=== PATIENT | female | born 1945 | race Caucasian/White ===

== ENCOUNTER 2017-09-08 14:21 | Inpatient (IN) ==
--- NOTE | 2017-09-08 15:08 | Emergency Department Note ---
Disposition Clinical Impression: Bimalleolar fracture Qualifiers: Encounter type: initial encounter Fracture type: closed Laterality: left Qualified Code(s): S82.842A - Displaced bimalleolar fracture of left lower leg, initial encounter for closed fracture Disposition: Admitted As Inpatient Condition: Good Time of Disposition: 18:13 Lower Extremity Injury HPI - General Chief Complaint: ED Extremity Injury, Lower Stated Complaint: Left ankle injury Time Seen by Provider: 09/08/17 14:29 Source: patient Limitations: no limitations Nursing Notes Reviewed: Yes Vital Signs Reviewed: Yes - History of Present Illness HPI Narrative: Alert and oriented 72-year-old female presents for evaluation of a fall injury just prior to arrival. The patient states that she was walking on steps of her basement, when she stepped at the last step, her ankle twisted and she fell. She complains of pain at the area of the lateral and medial malleolus of the left ankle. She denies any other injury or complaints at this time. She denies any numbness or tingling distal to the area of injury. She does state " I heard a snap". She denies hitting her head, she denies any back pain or neck pain. She denies any abdominal pain, or shortness of breath. 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 of Injury: fall Context: fall Place: home Pain Severity: severe Pain Scale: 8 Improves with: immobilization Worsens with: movement, palpation Associated symptoms: Reports: unable to bear weight, snap/pop sensation - Related Data Home Medications Medication Instructions Recorded Confirmed Apixaban [Eliquis] 5 mg PO BID 09/08/17 09/08/17 Atorvastatin Calcium [Lipitor] 80 mg PO HS 09/08/17 09/08/17 Celecoxib [Celebrex] 200 mg PO DAILY 09/08/17 09/08/17 Cetirizine HCl [Zyrtec] 10 mg PO DAILY 09/08/17 09/08/17 Flecainide Acetate [Flecainide 50 mg PO Q12H 09/08/17 09/08/17 Acetate] Levothyroxine [Synthroid] 75 mcg PO 0630 09/08/17 09/08/17 Metoprolol Succinate 100 mg PO DAILY 09/08/17 09/08/17 Multivitamin [One Daily Essential] 1 each PO DAILY 09/08/17 09/08/17 Tizanidine HCl [Tizanidine HCl] 4 mg PO Q8H PRN 09/08/17 09/08/17 Allergies Allergy/AdvReac Type Severity Reaction Status Date / Time acetaminophen Allergy Itching Verified 09/08/17 15:01 [From Darvocet-N] propoxyphene Allergy Itching Verified 09/08/17 15:01 [From Darvocet-N] codeine AdvReac Vomiting Verified 09/08/17 15:01 All systems ED: reviewed and negative except as stated. Constitutional: Denies: fever, chills, weakness, weight change Eyes: Denies: eye pain, eye discharge, vision change ENT ED: Denies: ear pain, throat pain, dental pain, hearing loss, epistaxis, congestion, dysphagia Cardiovascular: Denies: chest pain, palpitations, dyspnea on exertion, edema, syncope Respiratory: Denies: cough, dyspnea, wheezes, hemoptysis, stridor Gastrointestinal: Denies: abdominal pain, nausea, vomiting, diarrhea, constipation, hematemesis, melena, hematochezia Genitourinary: Denies: dysuria, frequency, hematuria, discharge Musculoskeletal: Reports: as per HPI, arthralgia (Left ankle injury). Denies: back pain, neck pain, myalgia Integumentary: Denies: rash, abrasion, lesions Neurological: Denies: headache, weakness, numbness, paresthesias, confusion, abnormal gait, vertigo Psychiatric: Denies: anxiety, depression, suicidal thoughts, homicidal thoughts , auditory hallucinations, visual hallucinations Endocrine: Denies: fatigue Hematological/Lymphatic: Denies: easy bleeding, easy bruising Allergic/Immunologic: Denies: facial swelling, urticaria Past Medical History - Past Medical History Attestation: Yes The following information was validated with the patient. Source: patient, nursing notes reviewed Medical history: Reports: atrial fibrillation, myocardial infarction, TIA Psychiatric history: Reports: no psych history - Social History Smoking Status: Never smoker Smokeless Tobacco Status: No Alcohol use: Reports: none Drug use: Reports: none Physical Exam - General Limitations: no limitations General appearance: alert, in no apparent distress - Head Head exam: atraumatic, normocephalic, normal inspection - Eye Eye exam: Present: normal appearance, PERRL, EOMI. Absent: nystagmus - ENT ENT exam: mucous membranes moist - Neck Neck exam: Present: normal inspection, full ROM, trachea midline - Chest Chest inspection: Present: normal inspection, symmetric chest wall rise - Expanded Lower Extremity Exam Upper leg exam: Present: normal inspection, full ROM. Absent: tenderness Knee exam: Present: normal inspection, full ROM. Absent: tenderness Lower leg exam: Present: normal inspection, full ROM. Absent: tenderness Ankle exam: Present: tenderness (Tenderness with palpation over the area of the lateral and medial malleolus, left ankle), swelling (Moderate edema noted, area of the lateral and medial malleolus). Absent: full ROM (Range of motion severely limited by pain, left ankle), ecchymosis, deformity, tenderness over talofibular lig Foot/toe exam: Present: normal inspection, full ROM. Absent: calcaneal tenderness, tenderness at base of 5th metatarsal Neurovascular/Tendon exam: Present: normal capillary refill. Absent: pulse deficit, tendon deficit, extremity cold to touch Gait: unable to bear weight - Neurological Exam Neurological exam: Present: alert, oriented X3 - Psychiatric Psychiatric exam: Present: normal affect, normal mood - Skin Skin exam: Present: warm, dry, intact, normal color Course Course Narrative: 1520: I spoke with Dr. mock, orthopedist international trade teacher. Dr. mock states that if the patient is able to ambulate with the use of crutches, that she may be splinted and discharged home with orthopedic follow-up. We will splint the patient and attempt an ambulation trial with the use of crutches. 1636: The patient is unable to ambulate safely with the use of crutches. I discussed this with Dr. mock. He requests the patient be admitted to the hospitalist service and podiatry be consult. He states that he could potentially perform surgical intervention after 48 hours, due to her Eliquis. 1700: I spoke with Dr. Prado of the hospitalist service. Dr. Prado accepts the patient for admission to his service with podiatry consultation. I have discussed this patient's case with Dr. Nikos Mccauley. Dr. Nikos Mccauley has had a [id number] evaluation with the patient and agrees with this plan. Vital Signs Temperature 97.7 F 09/08/17 14:56 Pulse Rate 75 09/08/17 14:56 Respiratory Rate 18 09/08/17 14:56 Blood Pressure 125/82 09/08/17 14:56 O2 Sat by Pulse Oximetry 99 09/08/17 14:56 Temperature 97.7 F 09/08/17 14:56 Pulse Rate 75 09/08/17 14:56 Respiratory Rate 18 09/08/17 14:56 Blood Pressure 125/82 09/08/17 14:56 O2 Sat by Pulse Oximetry 99 09/08/17 14:56 Oxygen Delivery Oxygen Delivery Room Air Extremity Injury, Lower - Medical Records Medical records reviewed: Yes I reviewed the patient's medical records. - Lab Data Result diagrams: 09/08/17 17:20 09/08/17 17:20 Lab Results 09/08/17 09/08/17 09/08/17 Range/Units 17:20 17:20 17:20 WBC 13.7 H (4.3-11.1) K/mcL RBC 3.70 L (3.82-4.97) M/mcL Hgb 12.3 (11.5-15.4) g/dL Hct 36.8 (35.3-44.9) % MCV 99.5 (83.0-100.0) fL MCH 33.2 (28.0-33.3) pg MCHC 33.4 (31.6-35.5) g/dL RDW 12.8 (11.5-14.5) % Plt Count 231 (140-400) K/mcL MPV 10.3 (9.4-12.4) fL Immature Gran % 0.6 (0-4) % Seg Neutrophils % 83.8 % Lymphocytes % 8.5 % Monocytes % 6.6 % Eosinophils % 0.2 % Basophils % 0.3 % Neutrophils # 11.5 H (1.6-8.9) K/mcL Lymphocytes # 1.2 (0.6-4.6) K/mcL Monocytes # 0.9 (0.0-1.3) K/mcL Eosinophils # 0.0 (0.0-0.6) K/mcL Basophils # 0.0 (0.0-0.2) K/mcL Immature Plt Fraction 3.8 (1.1-6.1) % PT 13.7 H (9.4-12.1) Seconds INR 1.3 APTT 24.4 L (26.0-36.0) Seconds Sodium 136 (136-145) mEq/L Potassium 4.2 (3.5-4.5) mEq/L Chloride 103 (98-109) mEq/L Carbon Dioxide 25 (19-29) mEq/L BUN 20 (7-20) mg/dL Creatinine 0.74 (0.57-1.11) mg/dL Est GFR ( Amer) > 60 (> 60) Est GFR (Non-Af Amer) > 60 (> 60) BUN/Creatinine Ratio 27 H (6-26) Glucose 120 H (70-99) mg/dL Calculated Osmolality 286 (280-300) Calcium 9.0 (8.6-10.8) mg/dL - Radiology Data Radiology results reviewed: Yes I reviewed the patient's radiology results. Ankle X-Ray 09/08/17 14:29 IMPRESSION: Bimalleolar fracture. D/ / Jaylon Grissom MD / Jaylon Grissom MD Interpreting Provider: Jaylon Grissom MD Foot X-Ray 09/08/17 14:29 IMPRESSION: Bimalleolar fracture. D/ / Jaylon Grissom MD / Jaylon Grissom MD Interpreting Provider: Jaylon Grissom MD Tibia/Fibula X-Ray 09/08/17 14:29 IMPRESSION: Bimalleolar fracture. D/ / Jaylon Grissom MD / Jaylon Grissom MD Interpreting Provider: Jaylon Grissom MD - EKG Data EKG attestation: Yes I reviewed and interpreted this EKG. EKG results narrative: EKG reviewed by Dr. Nikos Mccauley as well. EKG shows a sinus bradycardia with occasional ventricular premature complexes at a ventricular rate of 53 bpm. TX interval 187, QRS duration 102, QT/QTc interval 440/43. No STEMI. Attestation Statement - Attestation Attestation: For this encounter, I have reviewed the DOWEL INSPECTOR or PA documentation, treatment plan, and medical decision making; and I have had face to face time with this patient. 72 year old female who was walking down some stepss and injured her right ankle and has a bilmalleolar fracture of her right ankle. Sessions will see her as cnsult with medicine admit. 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
[2017-09-08] MEDS ORDERED: traMADol 50 MG TABLET PO ONE (15:27)
[2017-09-08 17:30] LABS: Basophils % 0.3 %; Eosinophils % 0.2 %; Hematocrit 36.8 % (35.3-44.9); Hemoglobin 12.3 g/dL (11.5-15.4); Immature Granulocytes % 0.6 % (0-4); Immature Platelets 3.8 % (1.1-6.1); Lymphocytes # 1.2 K/mcL (0.6-4.6); Lymphocytes % 8.5 %; Mean Corpuscular HGB Conc 33.4 g/dL (31.6-35.5); Mean Corpuscular Hemoglobin 33.2 pg (28.0-33.3); Mean Corpuscular Volume 99.5 fL (83.0-100.0); Mean Platelet Volume 10.3 fL (9.4-12.4); Monocytes # 0.9 K/mcL (0.0-1.3); Monocytes % 6.6 %; Neutrophils # 11.5 K/mcL (1.6-8.9); Platelet Count 231 K/mcL (140-400); Red Cell Distribution Width 12.8 % (11.5-14.5); Segmented Neutrophils % 83.8 %
[2017-09-08 17:37] LABS: INR 1.3; Prothrombin Time 13.7 Seconds (9.4-12.1)
[2017-09-08 17:39] LABS: Activated Partial Thrombo Time 24.4 Seconds (26.0-36.0)
[2017-09-08 17:41] LABS: BUN/Creatinine Ratio 27 (6-26); Blood Urea Nitrogen 20 mg/dL (7-20); Carbon Dioxide 25 mEq/L (19-29); Chloride 103 mEq/L (98-109); Glucose 120 mg/dL (70-99); Osmolality,Calculated 286 (280-300); Potassium 4.2 mEq/L (3.5-4.5); Sodium 136 mEq/L (136-145); eGFR For African Americans > 60 (> 60); eGFR For Non-African Americans > 60 (> 60)
[2017-09-08] MEDS ORDERED: *HR* Morphine 2 MG/ML SYRINGE IVP ONE (18:09)
[2017-09-08] MEDS ORDERED: *HR* Promethazine 25 MG/ML VIAL IVP ONE (18:09)
[2017-09-08] MEDS ORDERED: *HR* HYDROmorphone (PF) 1 MG/ML SYRINGE IVP ONE (19:27)
[2017-09-08] MEDS ORDERED: *HR* HYDROmorphone (PF) 1 MG/ML SYRINGE IVP PRN (19:40)
[2017-09-08] MEDS ORDERED: Naloxone 0.4 MG/ML INJ IVP PRN (19:40)
[2017-09-08] MEDS ORDERED: MOM Conc 10 ML UD.LIQ PO PRN (19:40)
[2017-09-08] MEDS ORDERED: Mag Hydrox/Al Hydrox/Simeth 30 ML UDC PO PRN (19:40)
[2017-09-08] MEDS ORDERED: 0.9 % Sodium Chloride 1,000 ML IVC SCH (19:45)
[2017-09-08] MEDS ORDERED: *HR* Promethazine 25 MG/ML VIAL IVP PRN (19:47)
[2017-09-08] MEDS ORDERED: tiZANidine 4 MG TABLET PO PRN (19:48)
--- NOTE | 2017-09-08 19:52 | Internal Med History&Physical ---
Date of Encounter: 09/08/17 Time of Encounter: 19:30 Assessment and Plan (1) Bimalleolar fracture Current visit: Yes Status: Acute Admit to med surg Podiatry consult - possible surgical intervention in 48 hours due to Eliquis Pain control - Dilaudid ordered at this time. May need to be increased. Non weight bearing L foot DVT prophylaxis with SCDs Qualifiers: Encounter type: initial encounter Fracture type: closed Laterality: left Qualified Code(s): S82.842A - Displaced bimalleolar fracture of left lower leg, initial encounter for closed fracture (2) Paroxysmal a-fib Current visit: Yes Status: Chronic Pt has hx of a fib now in NSR on flecanide and Eliquis. EKG show NSR with no acute change Eliquis on hold for OR Cardiology eval for clearance for surgery. (3) Status post CVA Current visit: Yes Status: Chronic Pt with acute neurological event following cath last August. No issues currently. (4) Coronary artery disease Current visit: Yes Status: Chronic Pt with DE last August. No symptoms at this time. Meds continued. Qualifiers: Coronary Disease-Associated Artery/Lesion type: [place] artery [place] vs. transplanted heart: [place] heart Associated angina: without angina Qualified Code(s): I25.10 - Atherosclerotic heart disease of [place] coronary artery without angina pectoris Internal Medicine - H&P: HPI Chief complaint: Ankle pain Admitted From: Emergency Dept Plans for Post Hospital Care: Home History of present illness: Ms. Ayala is a 72 year old female with hx of CAD s/p DE, a fib (now in sinus) on flecanide had mechanical fall and felt pain and heard "snap" in L ankle. She presented to ED right away and found to have bimalleolar fracture. She was admitted for further evaluation and treatment. Currently she is in significant pain. She denies nausea or vomiting. No CP or SOB. No syncope. Pain medication given thus far has not helped. She has had no prior fractures like this in the past. At this time she is high risk due to acute fracture and need for IV pain meds. I anticipate she will be hospitalized for greater than 2 midnights awaiting surgery due to her use of anticoagulant. She has been placed inpatient status. Past Med Surg Social Fam HX - Past Medical History Source: patient Medical history: atrial fibrillation, myocardial infarction, TIA Psychiatric history: no psych history - Past Surgical History Surgical History: hysterectomy, thyroidectomy - Social History Smoking Status: Never smoker Smokeless Tobacco Status: No Alcohol use: none Drug use: none Current living situation: Home - Independent Activity Level: Independent ambulation - Family History Mother Hx Family Cardiac Disorders: Yes (afib) Hx Family Cancer: Yes Internal Medicine - H&P: Meds Apixaban [Eliquis] 5 mg PO BID 09/08/17 [History] Atorvastatin Calcium [Lipitor] 80 mg PO HS 09/08/17 [History] Celecoxib [Celebrex] 200 mg PO DAILY 09/08/17 [History] Cetirizine HCl [Zyrtec] 10 mg PO DAILY 09/08/17 [History] Flecainide Acetate [Flecainide Acetate] 50 mg PO Q12H 09/08/17 [History] Levothyroxine [Synthroid] 75 mcg PO 0630 09/08/17 [History] Metoprolol Succinate 100 mg PO DAILY 09/08/17 [History] Multivitamin [One Daily Essential] 1 each PO DAILY 09/08/17 [History] Tizanidine HCl [Tizanidine HCl] 4 mg PO Q8H PRN 09/08/17 [History] 3 Allergy/AdvReac Type Severity Reaction Status Date / Time propoxyphene Allergy Itching Verified 09/08/17 15:01 [From [place]] codeine AdvReac Vomiting Verified 09/08/17 15:01 All Systems PM: A 10-system review of systems was performed and is negative for pertinent findings except as documented above in the HPI. - Constitutional Constitutional: falls - EENT Eyes: no blurry vision, no loss of vision, no pain Ears: no decreased hearing, no ear pain Nose, mouth and throat: no dry mouth, no dysphagia, no epistaxis - Cardiovascular Cardiovascular ROS IM: irregular heart rhythm, palpitations, no chest pain, no diaphoresis, no dyspnea on exertion Additional comments: Hx a fib now in NSR - Respiratory Respiratory: no dyspnea, no dyspnea on exertion, no wheezing - Gastrointestinal Gastrointestinal: no abdominal pain, no heartburn, no melena - Genitourinary Genitourinary: no dysuria, no hematuria, no nocturia - Musculoskeletal Musculoskeletal ROS IM: joint swelling, other Additional comments: Pain in L ankle. - Integumentary Integumentary IM: no erythema, no rash - Neurological Neurological ROS: no abnormal gait, no numbness, no tingling Additional comments: Hx CVA after heart cath - Psychiatric Psychiatric: no anxiety, no depression - Endocrine Endocrine IM: no excessive sweating, no flushing Additional comments: Has had partial thyroid removed - Allergic/Immunologic Allergic/Immunologic: no seasonal rhinorrhea, no wheezing - Constitutional Vitals: Temp Pulse Resp BP Pulse Ox 97.7 F 66 17 105/52 97 09/08/17 19:20 09/08/17 19:20 09/08/17 19:20 09/08/17 19:20 09/08/17 19:20 General appearance: Present: A&O X 3, answers questions appropriately Exam: Moderate distress due to pain. - Head Head exam: Present: normocephalic - Eye Eye exam: Present: EOMI, PERRL, conjuntiva pink - ENT ENT exam: Present: mucous membranes moist - Neck Neck exam general surgery: Present: normal inspection. Absent: thyromegaly - Respiratory Respiratory exam: Present: CTAB. Absent: rhonchi, wheezes - Cardiovascular Cardiovascular exam: Present: RRR. Absent: tachycardia - GI/Abdominal GI/Abdominal exam: Present: soft. Absent: tenderness - Extremities Exam Extremities exam: Present: tenderness, warm Additional comments: L ankle wrapped in splint. Pulses palpable. - Back Exam Additional comments: Increased thoracic kyphosis. - Neurological Exam Neurological exam: Present: alert, oriented X3, no focal deficits - Skin Skin exam: Present: dry, warm Internal Med - H&P Results - Labs CBC & Chem 7: 09/08/17 17:20 09/08/17 17:20
[2017-09-09] MEDS: Acetaminophen 325 MG TABLET PO PRN (05:54)
[2017-09-09 07:29] LABS: Basophils % 0.3 %; Eosinophils # 0.1 K/mcL (0.0-0.6); Eosinophils % 0.6 %; Hematocrit 33.7 % (35.3-44.9); Hemoglobin 11.2 g/dL (11.5-15.4); Immature Granulocytes % 0.5 % (0-4); Lymphocytes # 1.2 K/mcL (0.6-4.6); Lymphocytes % 11.1 %; Mean Corpuscular HGB Conc 33.2 g/dL (31.6-35.5); Mean Corpuscular Hemoglobin 32.9 pg (28.0-33.3); Mean Corpuscular Volume 99.1 fL (83.0-100.0); Mean Platelet Volume 10.8 fL (9.4-12.4); Monocytes # 1.1 K/mcL (0.0-1.3); Monocytes % 9.8 %; Neutrophils # 8.5 K/mcL (1.6-8.9); Platelet Count 197 K/mcL (140-400); Segmented Neutrophils % 77.7 %
--- NOTE | 2017-09-09 08:03 | Electrocardiograph Report ---
[place] [id number] Test Date: 2017-09-08 Pat Name: Frannie Ayala Department: 103 Room: 3A12 Gender: F Right Of Way Manager: : [id number] Requested By: Levi Waterman Order Number: [id number] Reading MD: Ciara Weiner Measurements Intervals [place] Rate: 53 P: 70 PA: 187 QRS: 7 QRSD: 102 T: 32 QT: 440 QTc: 423 Interpretive Statements SINUS BRADYCARDIA WITH OCCASIONAL VENTRICULAR PREMATURE COMPLEXES Electronically Signed On 09-09-2017 8:01:45 EDT by Ciara Weiner
--- NOTE | 2017-09-09 08:05 | Internal Med Progress Note ---
<Selwyn Child - Last Filed: 09/09/17 08:16> Date of Encounter: 09/09/17 Time of Encounter: 08:05 - Assessment and plan (1) Bimalleolar fracture Current Visit: Yes Status: Acute Assessment and plan: Patient found to suffer bimalleolar fracture of left ankle following a mechanical fall in her garage. Currently pain is controlled with Tylenol, hydromorphone ordered for increased pain levels Patient does report having some nausea and itching with hydromorphone, consider Benadryl if needed prior to Dilaudid Podiatry consulted for possible intervention Hold all requests SCDs Qualifiers: Encounter type: initial encounter Fracture type: closed Laterality: left Qualified Code(s): S82.842A - Displaced bimalleolar fracture of left lower leg, initial encounter for closed fracture (2) Paroxysmal a-fib Current Visit: Yes Status: Chronic Assessment and plan: Patient has history of paroxysmal atrial fibrillation currently on flecainide and I will request Patient Normal sinus rhythm at this time We will hold all questions due to likely surgery Cardiology consulted for clearance prior to surgery (3) Status post CVA Current Visit: Yes Status: Chronic Assessment and plan: Patient suffered acute neurological event following catheterization last August. No concerns currently (4) Coronary artery disease Current Visit: Yes Status: Chronic Assessment and plan: She has suffered TN last August for which she underwent cardiac catheterization. No concerns this time Continue home medications Qualifiers: Coronary Disease-Associated Artery/Lesion type: [place] artery [place] vs. transplanted heart: [place] heart Associated angina: without angina Qualified Code(s): I25.10 - Atherosclerotic heart disease of [place] coronary artery without angina pectoris (5) DVT prophylaxis Current Visit: Yes Status: Acute Assessment and plan: Pneumatic intermittent compression devices - Subjective Interval history: Patient reports that she is doing well this morning. She continues to have some throbbing in her ankle, but it is being controlled well with tylenol. She states Dilaudid makes her nauseous and itchy. She states she is woken up frequently and has not been able sleep, but has no other complaints at this time. - Constitutional Vitals: Temp Pulse Resp BP Pulse Ox 98.4 F 60 15 115/70 94 09/09/17 06:43 09/09/17 06:43 09/09/17 06:43 09/09/17 06:43 09/09/17 06:43 General appearance: Present: A&O X 3, answers questions appropriately Exam: General: Cooperative, pleasant, no acute distress, alert and oriented 3, answers questions appropriately HEENT: Normocephalic, atraumatic, Conjunctiva pink, sclera anicteric, oral mucosa moist, no orophargeal erythema or exudates Respiratory: No accessory muscle usage, clear to auscultation bilaterally, no wheezes/rhonchi/rales appreciated Cardiovascular: Regular rate and rhythm, S1 and S2 present, no murmurs/rubs/ gallops/clicks appreciated GI/abdominal: Nondistended, nontender, soft, normal bowel sounds, no peritoneal signs Extremities: No calf tenderness, noncyanotic, no pedal edema appreciated, warm, lower extremity pulses palpable and symmetrical, slight external rotation of left lower extremity, birthmark on left foot that causes erythema of toes 1-3 on that side, ankle bandage in place on left lower extremity Neurological: Alert and oriented 3, no facial droop, no focal deficits Internal Medicine: Result - Labs CBC & Chem 7: 09/09/17 05:48 09/08/17 17:20 Labs: Short CBC 09/09/17 Range/Units 05:48 WBC 10.9 (4.3-11.1) K/mcL Hgb 11.2 L (11.5-15.4) g/dL Hct 33.7 L (35.3-44.9) % Plt Count 197 (140-400) K/mcL Neutrophils # 8.5 (1.6-8.9) K/mcL - ABG Interpretation ABG results: PT/INR, D-dimer PT 13.7 Seconds (9.4-12.1) H 09/08/17 17:20 Consult Discharge Plan - Plan Referrals: Esvin Puckett DO [Primary Care Provider] - <Toni Patrick - Last Filed: 09/09/17 18:38> Date of Encounter: 09/09/17 - Assessment and plan (1) Bimalleolar fracture Current Visit: Yes Status: Acute Qualifiers: Encounter type: subsequent encounter Fracture type: closed Laterality: left Qualified Code(s): S82.842D - Displaced bimalleolar fracture of left lower leg, subsequent encounter for closed fracture with routine healing (2) Paroxysmal a-fib Current Visit: Yes Status: Chronic (3) Status post CVA Current Visit: Yes Status: Chronic (4) Coronary artery disease Current Visit: Yes Status: Chronic Qualifiers: Coronary Disease-Associated Artery/Lesion type: [place] artery [place] vs. transplanted heart: [place] heart Associated angina: without angina Qualified Code(s): I25.10 - Atherosclerotic heart disease of [place] coronary artery without angina pectoris - Constitutional Vitals: Temp Pulse Resp BP Pulse Ox 98.4 F 60 14 108/62 97 09/09/17 14:22 09/09/17 14:22 09/09/17 14:22 09/09/17 14:22 09/09/17 14:22 Internal Medicine: Result - Labs CBC & Chem 7: 09/09/17 05:48 09/09/17 05:48 - ABG Interpretation ABG results: PT/INR, D-dimer PT 13.7 Seconds (9.4-12.1) H 09/08/17 17:20 - Attending Attestation I examined this patient and my medical decision-making was reviewed with the Resident Physician on 09/09/17. I agree with the documented findings, disposition and treatment plan as described except to the extent set forth below. Ms Ayala is currently admitted for bimalleolar L ankle fracture. She remains moderate to high risk due to potential for cardiac issues and uncontrolled pain. Ms Ayala is still having pain but tolerable. She is having trouble tolerating IV pain meds. Toradol started. She tried crutches in ED but was deemed unsafe to be discharged home with them. It was felt she was at high risk for further injury. No fever or chills. No CP or SOB. Exam Alert. Comfortable if doesn't move Heart reg No wheeze Abd soft Splint in place I/P 1. PAF 2. CAD L ankle fx Further diagnoses and plan as above.
[2017-09-09 08:17] LABS: Alanine Aminotransferase 24 Units/L (0-55); Albumin 3.1 g/dL (3.5-5.0); Albumin/Globulin Ratio 1.1 (1.1-2.2); Alkaline Phosphatase 77 Units/L (38-126); Aspartate Amino Transferase 18 Units/L (5-34); BUN/Creatinine Ratio 29 (6-26); Bilirubin,Total 0.5 mg/dL (0.2-1.2); Blood Urea Nitrogen 18 mg/dL (7-20); Calcium 8.3 mg/dL (8.6-10.8); Carbon Dioxide 26 mEq/L (19-29); Chloride 104 mEq/L (98-109); Globulin 2.7 g/dL (2.4-3.5); Glucose 117 mg/dL (70-99); Magnesium 1.9 mg/dL (1.6-2.6); Osmolality,Calculated 287 (280-300); Potassium 3.9 mEq/L (3.5-4.5); Sodium 137 mEq/L (136-145); Total Protein 5.8 g/dL (6.0-8.3); eGFR For African Americans > 60 (> 60); eGFR For Non-African Americans > 60 (> 60)
[2017-09-09] MEDS: Loratadine 10 MG TABLET PO SCH (09:07)
[2017-09-09] MEDS: Metoprolol XL (24 HR) Succ 50 MG TAB.ER.24H PO SCH (09:07)
[2017-09-09] MEDS: Multivit/Ca/Min/Fe/FA 1 TAB TABLET PO SCH (09:07)
[2017-09-09] MEDS: Ketorolac 15 MG/ML VIAL IVP PRN ×2 (09:14→20:23)
--- NOTE | 2017-09-09 10:34 | Cardiology Consult Note ---
Date of Encounter: 09/09/17 Time of Encounter: 10:01 Assessment and Plan (1) Preop cardiovascular exam Current Visit: Yes Status: Acute Patient has a METS of at least 4. Negative cath and stress within the last year. Patient reports no chest pain with exertion or at rest. No need for further testing. Patient does have paroxysmal afib on Flecainide and Eliquis. Would recommend 48 hrs off Eliquis before surgery. Patient is at acceptable risk candidate for moderate risk procedure. (2) Paroxysmal a-fib Current Visit: Yes Status: Chronic See above. Currently in normal sinus rhythm and has been since admission. Stop Eliquis for surgery and restart evening after if possible. Discussion w patient/family: The assessment and plan as outlined above was discussed with the patient and/or family members who expressed understanding and agreement. All questions were answered. Thank you for involving us in the care of your patient. Please call with any questions. History of Present Illness Consult date: 09/09/17 Requesting physician: Toni Patrick Consult reason: preop clearance for non-vascular surgery Chief complaint: right ankle pain History of present illness: Ms. Ayala is a 72 year old female with a pmh of paroxysmal afib on Flecainide and Eliquis, TIA, and reports CAD with prior cath 1 year ago no blockages ( pending records) presented to the ED for L ankle pain and was found to have a bimalleolar fracture of the left ankle and cardiology was consulted for preop clearance. Her Accounting Professor is Dr. Abebe Galvan at the [facility] and records have been requested. Patient states that she had a cath last year without blockage that was obtained 2/2 elevated troponin after an episode of N/ V and L arm pain. She states that she had a negative stress and echo 1 year ago. She is able to walk up 3 flights of stairs without chest pain and minimal SOB that is unchanged. 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 No family hx of cardiovascular events. Past Med Surg Social Fam HX - Past Medical History Medical history: atrial fibrillation, myocardial infarction, TIA Psychiatric history: no psych history - Past Surgical History Surgical History: hysterectomy, thyroidectomy - Social History Smoking Status: Never smoker Smokeless Tobacco Status: No Alcohol use: none Drug use: none - Family History Mother Hx Family Cardiac Disorders: Yes (afib) Hx Family Cancer: Yes Medications and Allergies Apixaban [Eliquis] 5 mg PO BID 09/08/17 [History] Atorvastatin Calcium [Lipitor] 80 mg PO HS 09/08/17 [History] Celecoxib [Celebrex] 200 mg PO DAILY 09/08/17 [History] Cetirizine HCl [Zyrtec] 10 mg PO DAILY 09/08/17 [History] Flecainide Acetate [Flecainide Acetate] 50 mg PO Q12H 09/08/17 [History] Levothyroxine [Synthroid] 75 mcg PO 0630 09/08/17 [History] Metoprolol Succinate 100 mg PO DAILY 09/08/17 [History] Multivitamin [One Daily Essential] 1 each PO DAILY 09/08/17 [History] Tizanidine HCl [Tizanidine HCl] 4 mg PO Q8H PRN 09/08/17 [History] 3 Allergy/AdvReac Type Severity Reaction Status Date / Time propoxyphene Allergy Itching Verified 09/08/17 15:01 [From Mark-N] codeine AdvReac Vomiting Verified 09/08/17 15:01 All Systems Review: A 10-system review of systems was performed and is negative for pertinent findings except as documented above in the HPI. Physical Examination Vital Signs, Last 4 Hours Temp Pulse Resp BP Pulse Ox 09/09/17 06:43 98.4 F 60 15 115/70 94 General: Conversant, No Apparent Distress (ff) HEENT: Atraumatic, Normocephaly, Mucus Membranes Moist Neck: Other (Carotid bruise present ) Cardiac: Reg Rate and Rhythm, Normal S1 and S2, No Murmur Lungs: Normal Breath Sounds, No Wheeze, Rales, Rhonchi Neuro: Alert and responsive, No focal deficits noted Abdomen: Soft, Non-Tender Skin: No rashes noted on visualized skin Musculoskeletal: No Chest Wall Tenderness Extremities: No Clubbing, No Cyanosis, Other (L lower extremity in brace to knee < 2 sec capillary refill present, R lower extremity with mild swelling on the R lateral malleous) Results 09/09/17 05:48 09/09/17 05:48 Lab Results 09/09/17 09/09/17 05:48 05:48 WBC 10.9 Hgb 11.2 L Hct 33.7 L Plt Count 197 Sodium 137 Potassium 3.9 Chloride 104 Carbon Dioxide 26 BUN 18 Creatinine 0.62 Glucose 117 H Calcium 8.3 L Magnesium 1.9 Total Bilirubin 0.5 AST 18 ALT 24 Alkaline Phosphatase 77 Consult Discharge Plan - Plan Referrals: Esvin Puckett DO [Primary Care Provider] -
--- NOTE | 2017-09-09 12:36 | Podiatry Consult Note ---
Date of Encounter: 09/09/17 Time of Encounter: 12:00 Assessment and Plan (1) Bimalleolar fracture Current visit: Yes Status: Acute Left ankle xray showed Bimalleolar fracture. LLE in posterior splint. Plan: Dr. Sanchez to plan on taking patient to surgery on Thursday09/11/17 after Eliquis has been stopped for 48 hours. Plan of care discussed with patient and agreeable. Dr. Sanchez will evaluate patient tomorrow. Cardiology evaluated patient and cleared patient for surgery on 09/11/17. Qualifiers: Encounter type: initial encounter Fracture type: closed Laterality: left Qualified Code(s): S82.842A - Displaced bimalleolar fracture of left lower leg, initial encounter for closed fracture History of Present Illness HPI: Ms. Ayala is a 72 year old female admitted to [place] for a left bimalleolar fracture. Patient has a medical significant for CAD, atrial fibrillation on Eliquis, [place] and TIA. Patient states she was walking down the stairs and when she reached the bottom step she twisted her right ankle and fell on her left foot. At that time patient states she felt a "pop" in her left ankle and could not bear weight. Patient denies any surgical history to BLE. Patient denies any pain currently. A posterior splint is dry and intact to the LLE. Patient states her toes on the left foot are pink from a adam. No c/o fever, chills, cp, sob or calf pain. Past Med Surg Social Fam HX - Past Medical History Medical history: atrial fibrillation, myocardial infarction, TIA Psychiatric history: no psych history - Past Surgical History Surgical History: hysterectomy, thyroidectomy - Social History Smoking Status: Never smoker Smokeless Tobacco Status: No Alcohol use: none Drug use: none - Family History Mother Hx Family Cardiac Disorders: Yes (afib) Hx Family Cancer: Yes Medications and Allergies Apixaban [Eliquis] 5 mg PO BID 09/08/17 [History] Atorvastatin Calcium [Lipitor] 80 mg PO HS 09/08/17 [History] Celecoxib [Celebrex] 200 mg PO DAILY 09/08/17 [History] Cetirizine HCl [Zyrtec] 10 mg PO DAILY 09/08/17 [History] Flecainide Acetate [Flecainide Acetate] 50 mg PO Q12H 09/08/17 [History] Levothyroxine [Synthroid] 75 mcg PO 0630 09/08/17 [History] Metoprolol Succinate 100 mg PO DAILY 09/08/17 [History] Multivitamin [One Daily Essential] 1 each PO DAILY 09/08/17 [History] Tizanidine HCl [Tizanidine HCl] 4 mg PO Q8H PRN 09/08/17 [History] 3 Allergy/AdvReac Type Severity Reaction Status Date / Time propoxyphene Allergy Itching Verified 09/08/17 15:01 [From Darvocet-N] codeine AdvReac Vomiting Verified 09/08/17 15:01 All Systems Reviewed: A 10-system review of systems was performed and is negative for pertinent findings except as documented above in the HPI. Physical Exam - Constitutional Vitals: Temp Pulse Resp BP Pulse Ox 98.4 F 57 15 110/61 95 09/09/17 10:16 09/09/17 10:16 09/09/17 10:16 09/09/17 10:16 09/09/17 10:16 - Extremities Exam Extremities exam: Present: normal capillary refill Additional comments: Posterior splint dry and intact to LLE. Red discoloration to toes #1 through # 5 left foot secondary to adam. - Neurological Exam Neurological exam: Present: alert, oriented X3 - Vascular Capillary Refill: less than 3 seconds - Ankle & Foot Appearance ankle: swelling (Left: Posterior splint dry and intact to LLE. Right : mild edema to right ankle, no ecchymosis, no erythema, no tenderness, no pain with active or passive ROM.) Results - Labs Result Diagrams: 09/09/17 05:48 09/09/17 05:48 Labs: Abnormal lab results RBC 3.40 M/mcL (3.82-4.97) L 09/09/17 05:48 Hgb 11.2 g/dL (11.5-15.4) L 09/09/17 05:48 Hct 33.7 % (35.3-44.9) L 09/09/17 05:48 PT 13.7 Seconds (9.4-12.1) H 09/08/17 17:20 APTT 24.4 Seconds (26.0-36.0) L 09/08/17 17:20 BUN/Creatinine Ratio 29 (6-26) H 09/09/17 05:48 Glucose 117 mg/dL (70-99) H 09/09/17 05:48 Calcium 8.3 mg/dL (8.6-10.8) L 09/09/17 05:48 Serum Total Protein 5.8 g/dL (6.0-8.3) L 09/09/17 05:48 Albumin 3.1 g/dL (3.5-5.0) L 09/09/17 05:48 H & H 09/09/17 Range/Units 05:48 Hgb 11.2 L (11.5-15.4) g/dL Hct 33.7 L (35.3-44.9) % All other labs normal. Consult Discharge Plan - Plan Referrals: Esvin Puckett DO [Primary Care Provider] -
--- NOTE | 2017-09-10 07:18 | Internal Med Progress Note ---
<Selwyn hCild - Last Filed: 09/10/17 07:15> Date of Encounter: 09/10/17 Time of Encounter: 07:10 - Assessment and plan (1) Bimalleolar fracture Current Visit: Yes Status: Acute Assessment and plan: Patient found to suffer bimalleolar fracture of left ankle following a mechanical fall in her garage. Patient dislikes Dilaudid due to nausea and itching cause. Reports pain is well-controlled with IV Toradol. Continue Tylenol IV Toradol as needed for patient pain We will have Dilaudid when necessary for more severe pain, but try to avoid if possible Per podiatry note yesterday, plan for surgery tomorrow Qualifiers: Encounter type: subsequent encounter Fracture type: closed Laterality: left Qualified Code(s): S82.842D - Displaced bimalleolar fracture of left lower leg, subsequent encounter for closed fracture with routine healing (2) Paroxysmal a-fib Current Visit: Yes Status: Chronic Assessment and plan: Patient has history of paroxysmal atrial fibrillation currently on flecainide Patient in atrial fibrillation at this time, not tachycardic We will hold all questions due to likely surgery Patient cleared for surgery per cardiology without further cardiology testing required (3) Status post CVA Current Visit: Yes Status: Chronic Assessment and plan: Patient suffered acute neurological event following catheterization last August. No concerns currently (4) Coronary artery disease Current Visit: Yes Status: Chronic Assessment and plan: She has suffered CA last August for which she underwent cardiac catheterization. No concerns this time Continue home medications Qualifiers: Coronary Disease-Associated Artery/Lesion type: [place] artery [place] vs. transplanted heart: [place] heart Associated angina: without angina Qualified Code(s): I25.10 - Atherosclerotic heart disease of [place] coronary artery without angina pectoris (5) DVT prophylaxis Current Visit: Yes Status: Acute Assessment and plan: Pneumatic intermittent compression devices - Subjective Interval history: Patient asleep when initially seen this morning. She wakes up easily. She does complain of some continued discomfort in her left lower extremity, but that this is controlled with Toradol. She has no other concerns/complaints morning. No fever/chills, no shortness of breath, no chest pain, no nausea or vomiting. - Constitutional Vitals: Temp Pulse Resp BP Pulse Ox 97.7 F 61 15 124/69 95 09/10/17 03:29 09/10/17 03:29 09/10/17 03:29 09/10/17 03:29 09/10/17 03:29 General appearance: Present: A&O X 3, answers questions appropriately Exam: General: Cooperative, pleasant, no acute distress, alert and oriented 3, answers questions appropriately HEENT: Normocephalic, atraumatic, Conjunctiva pink, sclera anicteric Respiratory: No accessory muscle usage, clear to auscultation bilaterally, no wheezes/rhonchi/rales appreciated Cardiovascular: Irregularly irregular rhythm S2 present, no murmurs/rubs/gallops /clicks appreciated Extremities: No calf tenderness, noncyanotic, no pedal edema appreciated, warm, lower extremity pulses palpable and symmetrical, slight external rotation of left lower extremity, birthmark on left foot that causes erythema of toes 1-3 on that side, ankle bandage in place on left lower extremity, capillary refill normal bilaterally, sensation to toes intact Neurological: Alert and oriented 3, no facial droop, no focal deficits Internal Medicine: Result - Labs CBC & Chem 7: 09/09/17 05:48 09/09/17 05:48 - ABG Interpretation ABG results: PT/INR, D-dimer PT 13.7 Seconds (9.4-12.1) H 09/08/17 17:20 Consult Discharge Plan - Plan Referrals: Esvin Puckett DO [Primary Care Provider] - <Toni Patrick A - Last Filed: 09/10/17 17:25> Date of Encounter: 09/10/17 - Assessment and plan (1) Bimalleolar fracture Current Visit: Yes Status: Acute Qualifiers: Encounter type: subsequent encounter Fracture type: closed Laterality: left Qualified Code(s): S82.842D - Displaced bimalleolar fracture of left lower leg, subsequent encounter for closed fracture with routine healing (2) Paroxysmal a-fib Current Visit: Yes Status: Chronic (3) Status post CVA Current Visit: Yes Status: Chronic (4) Coronary artery disease Current Visit: Yes Status: Chronic Qualifiers: Coronary Disease-Associated Artery/Lesion type: [place] artery [place] vs. transplanted heart: [place] heart Associated angina: without angina Qualified Code(s): I25.10 - Atherosclerotic heart disease of [place] coronary artery without angina pectoris - Constitutional Vitals: Temp Pulse Resp BP Pulse Ox 98.4 F 60 16 133/75 95 09/10/17 09:00 09/10/17 09:00 09/10/17 09:00 09/10/17 09:00 09/10/17 09:00 Internal Medicine: Result - Labs CBC & Chem 7: 09/09/17 05:48 09/09/17 05:48 - ABG Interpretation ABG results: PT/INR, D-dimer PT 13.7 Seconds (9.4-12.1) H 09/08/17 17:20 - Attending Attestation I examined this patient and my medical decision-making was reviewed with the Resident Physician on 09/10/17. I agree with the documented findings, disposition and treatment plan as described except to the extent set forth below. Ms Ayala is currently admitted for fracture L ankle. She remains moderate to high risk due to potential for worsening clinical status. Ms Ayala is having some numbness on bottom of foot. Just started in prior 2 hours. No fever or chills. No CP or SOB Exam Alert. Comfortable Heart reg No wheeze Abd soft Pulses palpable. I/P 1. Fracture L ankle - podiatry notified patient is having some numbness. Plan at this time is for OR tomorrow 2. PAF Further diagnoses and plan as above.
[2017-09-10] MEDS: Loratadine 10 MG TABLET PO SCH (08:07)
[2017-09-10] MEDS: Metoprolol XL (24 HR) Succ 50 MG TAB.ER.24H PO SCH (08:07)
[2017-09-10] MEDS: Multivit/Ca/Min/Fe/FA 1 TAB TABLET PO SCH (08:07)
[2017-09-10] MEDS: Ketorolac 15 MG/ML VIAL IVP PRN (13:37)
--- NOTE | 2017-09-10 19:04 | Anesthesia Evaluation PreOp ---
Date of Encounter: 09/10/17 Time of Encounter: 19:02 - Past History Planned Operation: ORIF Left Ankle Cardiac History: [place], Hyperlipidemia, Arrhythmia (paroxysmal A-Fib) Pulmonary History: Denies Any Significant HX [employer] History: TIA Other Medical History: Thyroid Anesthesia History: No Prior Anesthetic Complications, Past Anesthesia ( hysterectomy) Alcohol Use: none Drug use: none Medications and Allergies Apixaban [Eliquis] 5 mg PO BID 09/08/17 [History] Atorvastatin Calcium [Lipitor] 80 mg PO HS 09/08/17 [History] Celecoxib [Celebrex] 200 mg PO DAILY 09/08/17 [History] Cetirizine HCl [Zyrtec] 10 mg PO DAILY 09/08/17 [History] Flecainide Acetate [Flecainide Acetate] 50 mg PO Q12H 09/08/17 [History] Levothyroxine [Synthroid] 75 mcg PO 0630 09/08/17 [History] Metoprolol Succinate 100 mg PO DAILY 09/08/17 [History] Multivitamin [One Daily Essential] 1 each PO DAILY 09/08/17 [History] Tizanidine HCl [Tizanidine HCl] 4 mg PO Q8H PRN 09/08/17 [History] 3 Allergy/AdvReac Type Severity Reaction Status Date / Time propoxyphene Allergy Itching Verified 09/08/17 15:01 [From Tyrell] codeine AdvReac Vomiting Verified 09/08/17 15:01 - Meds/Allergy Pre-op Review Medications Reviewed: Yes Allergies Reviewed: Yes Beta Blockers on Current Med List: Yes If Beta Blockers taken, Date/Time (Last Dose taken): 09/10/2017 at 0807 Anesthesia Results - Labs 09/09/17 05:48 09/09/17 05:48 - Imaging EKG: report reviewed (09/08/2017 SINUS BRADYCARDIA WITH OCCASIONAL VENTRICULAR PREMATURE COMPLEXES) Anesthesia Exam Vital Signs/O2 Sat, Most Current Temp Pulse Resp BP Pulse Ox 98.4 F 60 16 133/75 95 09/10/17 09:00 09/10/17 09:00 09/10/17 09:00 09/10/17 09:00 09/10/17 09:00 Height: 5'6''/1.68 m Weight: 153 lbs/69.6 kg Pain Scale: 2 (left ankle) Pain Scale Used: Numeric (1 - 10) - HEENT Pupil (Motor): EOMI Mallampati: II Teeth: Normal Denture Type: Upper: Partial Oral Opening: Greater than 3 - [employer] LOC: Oriented [employer] Motor: Normal RUE, Normal LUE, Normal RLE, Normal LLE, Normal Face [employer] Sensory: Normal: RUE, LUE, RLE, LLE, Face - Cardiac Rhythm: Regular Murmur: None - Pulmonary Breath Sounds: bilateral Clear Respiratory Effort: Symmetrical Anesthesia Assess/Plan ASA Score: 3 Modified Dani Scale for Level of Consciousness: Cooperative, oriented, and tranquil Anesthetic Plan: General, Regional Monitoring Plan: Standard Monitors Recovery Plan: PACU
[2017-09-10] MEDS ORDERED: Melatonin 3 MG TABLET PO ONE (21:42)
[2017-09-11 04:46] LABS: Basophils # 0.1 K/mcL (0.0-0.2); Basophils % 0.5 %; Eosinophils # 0.2 K/mcL (0.0-0.6); Eosinophils % 2.5 %; Hemoglobin 11.9 g/dL (11.5-15.4); Immature Granulocytes % 0.4 % (0-4); Lymphocytes # 1.6 K/mcL (0.6-4.6); Lymphocytes % 16.8 %; Mean Corpuscular HGB Conc 33.1 g/dL (31.6-35.5); Mean Corpuscular Hemoglobin 33.1 pg (28.0-33.3); Mean Platelet Volume 10.3 fL (9.4-12.4); Monocytes % 10.6 %; Neutrophils # 6.4 K/mcL (1.6-8.9); Platelet Count 205 K/mcL (140-400); Red Cell Distribution Width 12.9 % (11.5-14.5); Segmented Neutrophils % 69.2 %
[2017-09-11 04:56] LABS: BUN/Creatinine Ratio 21 (6-26); Blood Urea Nitrogen 13 mg/dL (7-20); Calcium 8.8 mg/dL (8.6-10.8); Carbon Dioxide 27 mEq/L (19-29); Chloride 104 mEq/L (98-109); Glucose 118 mg/dL (70-99); Osmolality,Calculated 287 (280-300); Sodium 138 mEq/L (136-145); eGFR For African Americans > 60 (> 60); eGFR For Non-African Americans > 60 (> 60)
[2017-09-11] MEDS: Ketorolac 15 MG/ML VIAL IVP PRN (05:22)
--- NOTE | 2017-09-11 08:11 | Internal Med Progress Note ---
<Selwyn Child - Last Filed: 09/11/17 08:05> Date of Encounter: 09/11/17 Time of Encounter: 08:00 - Assessment and plan (1) Bimalleolar fracture Current Visit: Yes Status: Acute Assessment and plan: Patient found to suffer bimalleolar fracture of left ankle following a mechanical fall in her garage. Patient dislikes Dilaudid due to nausea and itching cause. Reports pain is well-controlled with IV Toradol. Continue Tylenol IV Toradol as needed for patient pain We will have Dilaudid when necessary for more severe pain, but try to avoid if possible Surgery planned for today Qualifiers: Encounter type: subsequent encounter Fracture type: closed Laterality: left Qualified Code(s): S82.842D - Displaced bimalleolar fracture of left lower leg, subsequent encounter for closed fracture with routine healing (2) Paroxysmal a-fib Current Visit: Yes Status: Chronic Assessment and plan: Patient has history of paroxysmal atrial fibrillation currently on flecainide Patient in atrial fibrillation at this time, not tachycardic We will hold all questions due to likely surgery Patient cleared for surgery per cardiology without further cardiology testing required (3) Status post CVA Current Visit: Yes Status: Chronic Assessment and plan: Patient suffered acute neurological event following catheterization last August. No concerns currently (4) Coronary artery disease Current Visit: Yes Status: Chronic Assessment and plan: She has suffered [place] last August for which she underwent cardiac catheterization. No concerns this time Continue home medications Qualifiers: Coronary Disease-Associated Artery/Lesion type: [place] artery [place] vs. transplanted heart: [place] heart Associated angina: without angina Qualified Code(s): I25.10 - Atherosclerotic heart disease of [place] coronary artery without angina pectoris (5) DVT prophylaxis Current Visit: Yes Status: Acute Assessment and plan: Pneumatic intermittent compression devices - Subjective Interval history: Patient reports she is doing well this morning. States her foot was driving little bit last night but that it was adequately controlled with IV Toradol. She did have episode of numbness in her left foot yesterday but states it improved with removal and replacement of the bandage. She has no complaints of nausea vomiting, shortness of breath, chest pain, fever or chills this morning. - Constitutional Vitals: Temp Pulse Resp BP Pulse Ox 98.2 F 62 16 136/68 96 09/11/17 04:01 09/11/17 04:01 09/11/17 04:01 09/11/17 04:01 09/11/17 04:01 General appearance: Present: A&O X 3, answers questions appropriately Exam: General: Cooperative, pleasant, no acute distress, alert and oriented 3, answers questions appropriately HEENT: Normocephalic, atraumatic, Conjunctiva pink, sclera anicteric Respiratory: No accessory muscle usage, clear to auscultation bilaterally, no wheezes/rhonchi/rales appreciated Cardiovascular: Irregularly irregular rhythm S2 present, no murmurs/rubs/gallops /clicks appreciated Abdominal: BS x4, no tenderness Extremities: No calf tenderness, noncyanotic, no pedal edema appreciated, warm, lower extremity pulses palpable and symmetrical, slight external rotation of left lower extremity, birthmark on left foot that causes erythema of toes 1-3 on that side, ankle bandage in place on left lower extremity, capillary refill normal bilaterally, sensation to toes intact Neurological: Alert and oriented 3, no facial droop, no focal deficits Internal Medicine: Result - Labs CBC & Chem 7: 09/11/17 04:23 09/11/17 04:23 Labs: Short CBC 09/11/17 Range/Units 04:23 WBC 9.2 (4.3-11.1) K/mcL Hgb 11.9 (11.5-15.4) g/dL Hct 36.0 (35.3-44.9) % Plt Count 205 (140-400) K/mcL Neutrophils # 6.4 (1.6-8.9) K/mcL BMP 09/11/17 04:23 Sodium 138 Potassium 4.0 Chloride 104 Carbon Dioxide 27 BUN 13 Creatinine 0.61 Glucose 118 H Calcium 8.8 - ABG Interpretation ABG results: PT/INR, D-dimer PT 13.7 Seconds (9.4-12.1) H 09/08/17 17:20 Consult Discharge Plan - Plan Additional Instructions: After open reduction, internal fixation of the ankle fracture the patient will need to be evaluated by physical therapy. If the patient is safe to return home she can return home if not a rehabilitation facility may be necessary. The patient will not need dressing changes, she will leave the dressings intact until follow-up. The patient will be dispensed a cam boot, she will remain nonweightbearing and will use the cam boot if transitioning or ambulating with crutches or other assistive device. The patient is okay to remove the cam boot when resting in bed and when conscious. The patient will follow-up one week after discharge in clinic. Referrals: Esvin Puckett, DO [Primary Care Provider] - <Toni Patrick - Last Filed: 09/11/17 18:59> Date of Encounter: 09/11/17 - Assessment and plan (1) Constipation by delayed colonic transit Current Visit: Yes Status: Acute (2) Bimalleolar fracture Current Visit: Yes Status: Acute Qualifiers: Encounter type: subsequent encounter Fracture type: closed Laterality: left Qualified Code(s): S82.842D - Displaced bimalleolar fracture of left lower leg, subsequent encounter for closed fracture with routine healing (3) Paroxysmal a-fib Current Visit: Yes Status: Chronic (4) Status post CVA Current Visit: Yes Status: Chronic (5) Coronary artery disease Current Visit: Yes Status: Chronic Qualifiers: Coronary Disease-Associated Artery/Lesion type: [place] artery [place] vs. transplanted heart: [place] heart Associated angina: without angina Qualified Code(s): I25.10 - Atherosclerotic heart disease of [place] coronary artery without angina pectoris - Constitutional Vitals: Temp Pulse Resp BP Pulse Ox 98.6 F 69 16 92/54 95 09/11/17 17:00 09/11/17 17:00 09/11/17 17:00 09/11/17 17:00 09/11/17 17:00 Internal Medicine: Result - Labs CBC & Chem 7: 09/11/17 04:23 09/11/17 04:23 Labs: Short CBC 09/11/17 Range/Units 04:23 WBC 9.2 (4.3-11.1) K/mcL Hgb 11.9 (11.5-15.4) g/dL Hct 36.0 (35.3-44.9) % Plt Count 205 (140-400) K/mcL Neutrophils # 6.4 (1.6-8.9) K/mcL BMP 09/11/17 04:23 Sodium 138 Potassium 4.0 Chloride 104 Carbon Dioxide 27 BUN 13 Creatinine 0.61 Glucose 118 H Calcium 8.8 - ABG Interpretation ABG results: PT/INR, D-dimer PT 13.7 Seconds (9.4-12.1) H 09/08/17 17:20 - Impressions Impressions Ankle X-Ray 09/11/17 12:40 IMPRESSION: Intraprocedural fluoroscopic spot images as above. See separate procedure report for more information. D/ / 09/11/2017 14:44:11 Ronnie Mondragon MD / yohannes Interpreting Provider: Ronnie Mondragon MD Fluoroscopy 09/11/17 12:40 IMPRESSION: Intraprocedural fluoroscopic spot images as above. See separate procedure report for more information. D/ / 09/11/2017 14:44:11 Ronnie Mondragon MD / yohannes Interpreting Provider: Ronnie Mondragon MD - Attending Attestation I examined this patient and my medical decision-making was reviewed with the Resident Physician on 09/11/17. I agree with the documented findings, disposition and treatment plan as described except to the extent set forth below. Ms Ayala is currently admitted for ankle fracture. She remains moderate to high risk due to potential for worsening clinical status. Ms Ayala is doing OK. She will be going to surgery today. She is constipated. No fever or chills. Exam Alert. Comfortable Heart reg No wheeze Abd soft I/P 1. Constipation 2. Ankle fracture Further diagnoses and plan as above.
[2017-09-11] MEDS ORDERED: Bupivacaine/Clonidine Syringe 1 EACH SYRINGE ONE ×2 (09:13→11:36)
[2017-09-11] MEDS: Multivit/Ca/Min/Fe/FA 1 TAB TABLET PO SCH (09:33)
[2017-09-11] MEDS: Metoprolol XL (24 HR) Succ 50 MG TAB.ER.24H PO SCH ×2 (09:33→10:07)
[2017-09-11] MEDS: Loratadine 10 MG TABLET PO SCH (09:33)
[2017-09-11] MEDS ORDERED: Ondansetron 4 MG/2 ML VIAL ONE ×2 (11:18→12:51)
[2017-09-11] MEDS ORDERED: Dexamethasone 4 MG/ML VIAL ONE (11:18)
[2017-09-11] MEDS ORDERED: *HR* FentaNYL (PF) 100 MCG/2 ML VIAL ONE (11:18)
[2017-09-11] MEDS ORDERED: Lidocaine -MPF 2% 2 ML VIAL ONE (11:18)
[2017-09-11] MEDS ORDERED: *HR* Midazolam HCl 2 MG/2 ML VIAL ONE (11:19)
[2017-09-11] MEDS ORDERED: *HR* Propofol 200 MG/20 ML VIAL IVP ONE (11:19)
[2017-09-11] MEDS ORDERED: ROPIVACAINE HCL/PF 0.5% 30 ML VIAL ONE (11:36)
[2017-09-11] MEDS ORDERED: Propofol 500 MG/50 ML INFUS..BTL ONE (12:18)
[2017-09-11] MEDS ORDERED: Acetaminophen IV 1,000 MG/100 ML INFUS..BTL ONE (12:21)
[2017-09-11] MEDS ORDERED: Famotidine 20 MG/2 ML VIAL ONE (12:21)
--- NOTE | 2017-09-11 14:28 | Anesthesia Evaluation Post Op ---
Date of Encounter: 09/11/17 Time of Encounter: 14:12 Notes: Patient is stable postoperatively and has adequately recovered from anesthesia. Patient has a patent airway and stable respiratory function including respiratory rate and oxygen saturation. Patient has a stable heart rate, blood pressure and adequate hydration. Patient's mental status is acceptable. Patient's temperature is appropriate. Pain and nausea are adequately controlled. Last vital signs were reviewed. - Discharge PostOp Status: Transfer Patient to floor
--- NOTE | 2017-09-11 16:50 | Operative Note ---
Date of procedure: 09/11/17 Pre-op diagnosis: Left ankle fracture, bimalleolar with subluxation of ankle Post-op diagnosis: same Procedure: Open reduction, internal fixation of left ankle fracture. Syndesmosis repair, open, left Implants: Analia plate with associated screws Anesthesia: MAC Surgeon: Horacio Sanchez Estimated blood loss (cc): 5 Condition: stable Disposition: floor Procedure in Detail: The patient was administered IV antibiotics. The patient was transported to the operative room and placed on operating table in the position. Following general anesthesia the foot was scrubbed prepped and draped in the usual aseptic fashion. A timeout was performed. The lower extremity was raised to 60 degrees for hemostasis and exsanguinated utilizing an Esmarch bandage. The pneumatic tourniquet was inflated. The leg was lowered to the table. An incision was made over the fibula and deepened through subcutaneous tissue with care taken to identify and retract all vital neurovascular structures. The distal fibula was reduced utilizing a lobster claw. Once the fibula was reduced and fixated with a neutralization plate the attention was directed to the medial malleolus. A small incision was made over the medial malleolus and deepened through subcutaneous tissue with care taken to identify and retract all vital neurovascular structures. 2 guidewires were placed in the medial malleolus 2 screw fixation was placed utilizing the guidewires. After sufficient fixation was noted at the medial malleolus the attention was directed to the syndesmosis. The syndesmosis was tested and noted to be insufficient, an open syndesmotic repair was performed and a screw was then placed to reduce the syndesmosis. The incision sites were then irrigated with copious amounts of normal saline and closed in a layered fashion. A dry sterile dressing was applied. The pneumatic tourniquet was deflated and a hyperemic response was noted to all digits. The patient was placed in a posterior splint. The patient tolerated the procedure and anesthesia well and was transported to the recovery room with vital signs stable and vascular status intact to both feet. The patient will be admitted to the floor per anesthesia. The patient will keep the dressings clean, dry, intact until the follow-up appointment in 1-2 weeks. The patient's weightbearing status will be strict nonweightbearing.
--- NOTE | 2017-09-11 16:57 | Podiatry Progress Note ---
Date of Encounter: 09/11/17 Time of Encounter: 16:54 - Assessment and Plan (1) Bimalleolar fracture Current Visit: Yes Status: Acute The patient was instructed that she needs open reduction, internal fixation of the bimalleolar ankle fracture of her left ankle.Patient was informed of the risks and complications of surgery. These may include but are not limited to the following; nerve damage, numbness, tingling, RSD/CRPS, loss of motor function, loss of toe, loss of limb, loss of life, ischemia, wound healing issues, infection, scarring, keloid formation, continued pain, arthritis, non- union, mal-union, prominent hardware, displaced hardware, reaction to hardware, the need to remove hardware, bruising, continued limp, the need for future surgery, over correction, under correction, chronic swelling, the need for physical therapy, stiffness of joints, ulceration, slow healing, wound dehiscence, reaction to implant, reaction to sutures. The patient was informed of the possible conservative treatments available which may include but are not limited to the following: Orthotics, bracing, non -weight bearing, physical therapy, padding, taping, steroid injections, NSAIDS, casting. The patient was given the option to seek a second opinion. It was explained that surgery is an art and not an exact science therefore results cannot be guaranteed. All the patients questions and concerns were addressed. Patient agrees to have the surgery despite the possible risks and complications. Absolutely no guarantees were given or implied. Qualifiers: Encounter type: subsequent encounter Fracture type: closed Laterality: left Qualified Code(s): S82.842D - Displaced bimalleolar fracture of left lower leg, subsequent encounter for closed fracture with routine healing Subjective Principal diagnosis: Left ankle fracture Interval history: Patient relates that she has continued swelling. Patient relates that she had weird sensations on the bottom of her foot and would like to be evaluated. Objective - Vital Signs Vital Signs: Vital Signs Temp Pulse Resp BP Pulse Ox 09/11/17 15:30 98.8 F 16 111/67 09/11/17 15:00 53 16 119/76 94 09/11/17 14:45 97.3 F L 63 16 130/71 96 09/11/17 14:30 97.5 F L 65 16 113/67 100 09/11/17 14:12 55 16 118/70 96 09/11/17 14:02 97.2 F L 61 16 109/69 94 09/11/17 13:52 57 16 112/64 96 09/11/17 13:42 50 16 95/59 97 09/11/17 13:32 97.0 F L 59 16 101/60 100 09/11/17 10:02 98.2 F 57 16 121/69 96 09/11/17 08:14 98.4 F 71 16 112/54 95 09/11/17 04:01 98.2 F 62 16 136/68 96 09/10/17 23:36 98.5 F 55 14 117/65 91 09/10/17 20:03 98.4 F 69 15 126/61 93 Intake and Output 09/11/17 09/11/17 09/11/17 07:59 15:59 23:59 Intake Total 0 / 0 0 / 0 Output Total 350 / 350 505 / 505 Balance -350 / -350 -505 / -505 Intake: Oral 0 / 0 0 / 0 Output: Urine 350 / 350 500 / 500 Estimated Blood Loss 5 / 5 Other: Meal NPO Percent of Meal Consumed 0% # Bowel Movements 0 Weight 69.4 kg Blood Glucose* 99 Patient Weight 09/11/17 23:59 Weight 69.4 kg - Exam Exam: Pulses palpable. Capillary fill time intact to digits 1 through 5 bilaterally. There are no open lesions, abrasions, or ulcerations. Sensation grossly intact to light touch to the level of the digits. Moderate Edema noted to left ankle. No excessive pressure consistent with compartment syndrome. Radiographic exam demonstrates bimalleolar ankle fracture. - Lab Result Diagrams: 09/11/17 04:23 09/11/17 04:23 Labs: Abnormal lab results RBC 3.60 M/mcL (3.82-4.97) L 09/11/17 04:23 PT 13.7 Seconds (9.4-12.1) H 09/08/17 17:20 APTT 24.4 Seconds (26.0-36.0) L 09/08/17 17:20 Glucose 118 mg/dL (70-99) H 09/11/17 04:23 POC Glucose 99 (58-89) H 09/11/17 10:07 Serum Total Protein 5.8 g/dL (6.0-8.3) L 11/01/17 05:48 Albumin 3.1 g/dL (3.5-5.0) L 09/09/17 05:48 Consult Discharge Plan - Plan Additional Instructions: After open reduction, internal fixation of the ankle fracture the patient will need to be evaluated by physical therapy. If the patient is safe to return home she can return home if not a rehabilitation facility may be necessary. The patient will not need dressing changes, she will leave the dressings intact until follow-up. The patient will be dispensed a cam boot, she will remain nonweightbearing and will use the cam boot if transitioning or ambulating with crutches or other assistive device. The patient is okay to remove the cam boot when resting in bed and when conscious. The patient will follow-up one week after discharge in clinic. Referrals: Esvin Puckett DO [Primary Care Provider] -
[2017-09-11] MEDS: Acetaminophen 325 MG TABLET PO PRN ×2 (21:09→22:04)
[2017-09-12 05:27] LABS: Basophils % 0.1 %; Hematocrit 34.7 % (35.3-44.9); Hemoglobin 11.5 g/dL (11.5-15.4); Immature Granulocytes % 0.4 % (0-4); Lymphocytes # 0.9 K/mcL (0.6-4.6); Lymphocytes % 5.8 %; Mean Corpuscular HGB Conc 33.1 g/dL (31.6-35.5); Mean Corpuscular Hemoglobin 32.9 pg (28.0-33.3); Mean Corpuscular Volume 99.1 fL (83.0-100.0); Mean Platelet Volume 10.5 fL (9.4-12.4); Monocytes % 6.3 %; Neutrophils # 13.3 K/mcL (1.6-8.9); Platelet Count 227 K/mcL (140-400); Red Cell Distribution Width 12.8 % (11.5-14.5); Segmented Neutrophils % 87.4 %
[2017-09-12] MEDS: Loratadine 10 MG TABLET PO SCH (10:00)
[2017-09-12] MEDS: Multivit/Ca/Min/Fe/FA 1 TAB TABLET PO SCH (10:00)
[2017-09-12] MEDS: Metoprolol XL (24 HR) Succ 50 MG TAB.ER.24H PO SCH (10:00)
[2017-09-12] MEDS: Ketorolac 15 MG/ML VIAL IVP PRN (11:06)
[2017-09-12] MEDS ORDERED: *HR* HYDROcodone/Acet 5/325 mg TABLET PO ONE (13:52)
--- NOTE | 2017-09-12 14:02 | Discharge Summary ---
Date of Encounter: 09/12/17 Time of Encounter: 13:53 - Discharge Diagnosis (1) Bimalleolar fracture Priority: Primary Status: Acute Qualifiers: Encounter type: subsequent encounter Fracture type: closed Laterality: left Qualified Code(s): S82.842D - Displaced bimalleolar fracture of left lower leg, subsequent encounter for closed fracture with routine healing (2) Constipation by delayed colonic transit Priority: Secondary Status: Acute (3) Paroxysmal a-fib Priority: Secondary Status: Chronic (4) Status post CVA Priority: Secondary Status: Chronic (5) Coronary artery disease Priority: Secondary Status: Chronic Qualifiers: Coronary Disease-Associated Artery/Lesion type: [place] artery [place] vs. transplanted heart: [place] heart Associated angina: without angina Qualified Code(s): I25.10 - Atherosclerotic heart disease of [place] coronary artery without angina pectoris - Discharge Medications Prescriptions: Promethazine [Phenergan] 12.5 mg PO Q6HR PRN #20 tablet PRN Reason: Nausea HYDROcodone/Acet 5/325 mg [Gage 5-325 mg] 1 tab PO Q4H PRN #20 tab PRN Reason: Pain Home Medications: Apixaban [Eliquis] 5 mg PO BID 09/08/17 [History] Atorvastatin Calcium [Lipitor] 80 mg PO HS 09/08/17 [History] Celecoxib [Celebrex] 200 mg PO DAILY 09/08/17 [History] Cetirizine HCl [Zyrtec] 10 mg PO DAILY 09/08/17 [History] Flecainide Acetate 50 mg PO Q12H 09/08/17 [History] Levothyroxine [Synthroid] 75 mcg PO 0630 09/08/17 [History] Metoprolol Succinate 100 mg PO DAILY 09/08/17 [History] Multivitamin [One Daily Essential] 1 each PO DAILY 09/08/17 [History] Tizanidine HCl 4 mg PO Q8H PRN 09/08/17 [History] Acetaminophen [Tylenol] 650 mg PO Q6HR PRN tablet 09/12/17 [Rx] HYDROcodone/Acet 5/325 mg [Gage 5-325 mg] 1 tab PO Q4H PRN #20 tab 09/12/17 [Rx ] Promethazine [Phenergan] 12.5 mg PO Q6HR PRN #20 tablet 09/12/17 [Rx] Allergies/Adverse Reactions: 3 Allergy/AdvReac Type Severity Reaction Status Date / Time propoxyphene Allergy Itching Verified 09/08/17 15:01 [From Darvocet-N] codeine AdvReac Vomiting Verified 09/08/17 15:01 Date of admission: 09/09/17 15:47 Primary care physician: Esvin Puckett Consults: 09/12/17 07:35 PT [Consult to Physical Therapy] [CONS] Routine Comment: Evaluate, develop and implement POC Reason for Consult: Strict nonweight bearing L foot. Crutches. Discharging clinician: Toni Patrick Anticipated date of discharge: 09/12/17 - Patient Status Disposition: Home, Self-Care Condition: Good Functional capacity at discharge: uses cane/walker (Crutches or skooter.) Overall status at discharge: patient is progressing back to baseline - Discharge Instructions Instructions: Ankle Fracture (DC), Open Reduction and Internal Fixation of an Ankle Fracture (DC) Follow Up With: Esvin Puckett, [Primary Care Provider] - Additional Instructions: After open reduction, internal fixation of the ankle fracture the patient will need to be evaluated by physical therapy. If the patient is safe to return home she can return home if not a rehabilitation facility may be necessary. The patient will not need dressing changes, she will leave the dressings intact until follow-up. The patient will be dispensed a cam boot, she will remain nonweightbearing and will use the cam boot if transitioning or ambulating with crutches or other assistive device. The patient is okay to remove the cam boot when resting in bed and when conscious. The patient will follow-up one week after discharge in clinic. - Diet and Activity Activity: increase activity as tolerated Diet: advance to your usual diet Hospital course: Ms. Ayala is a 72 year old female with hx of PAF presented to ED after mechanical fall. She was found to have acute fracture of her L ankle. In ED she was in significant pain and could not ambulate with crutches. At that time she was admitted for further evaluation and treatment. Ms Ayala was admitted to med surg. She had significant pain on admission and was ordered IV pain medications. Due to her history of PAF on antiarrhythmic she was seen by cardiology prior to surgery. Her Eliquis was held and surgery was scheduled. She underwent ORIF on 09/11 and Eliquis to be restarted on 09/12. On 09/12 she was up in room. She was given Gage for pain and at that time she was afebrile with stable vitals. She was ready for discharge home. - Time Spent with Patient Total time spent providing and/or coordinating discharge services: 41min - Constitutional Vitals: Temp Pulse Resp BP Pulse Ox 98.1 F 57 14 117/72 94 09/12/17 11:06 09/12/17 11:06 09/12/17 11:06 09/12/17 11:06 09/12/17 11:06 General appearance: Present: A&O X 3, answers questions appropriately - Head Head exam: Present: normocephalic - Eye Eye exam: Present: conjuntiva pink - ENT ENT exam: Present: mucous membranes dry - Respiratory Respiratory exam: Present: CTAB. Absent: rhonchi, wheezes - Cardiovascular Cardiovascular exam: Present: RRR. Absent: tachycardia - GI/Abdominal GI/Abdominal exam: Present: soft. Absent: tenderness - Extremities Exam Extremities exam: Present: warm - Neurological Exam Neurological exam: Present: alert, oriented X3 - VTE Documentation of Mechanical Device: Venous foot pump, device
[2017-09-12] MEDS ORDERED: APIXABAN 5 MG TABLET PO SCH (14:30)
[2017-09-12 15:30] VITALS: BP 125/69
== END 2017-09-12 17:00 | disposition home or self-care (01) | DRG 494 ==
LOC: 3ANU 14:21 → EMEROO 14:21 → 3ANU 18:26 → SUATTDRO 19:40
PROVIDERS: ADMIT Family Medicine; ATTEND Internal Medicine

== ENCOUNTER 2019-09-19 08:12 | Inpatient (IN) ==
[2019-09-19] MEDS ORDERED: CeFAZolin Syr 2,000MG/20 ML 2,000 MG/20 ML SYRINGE IVPB ONE (08:32)
[2019-09-19] MEDS ORDERED: Albuterol 2.5 MG/3 ML NEBULIZER IH PRN (08:32)
[2019-09-19] MEDS ORDERED: Ringers Solution, Lactated 1,000 ML IVC SCH ×2 (08:45→12:28)
[2019-09-19] MEDS ORDERED: *HR* Midazolam HCl 2 MG/2 ML VIAL ONE (08:56)
[2019-09-19] MEDS ORDERED: *HR* FentaNYL (PF) 100 MCG/2 ML VIAL ONE (08:56)
[2019-09-19] MEDS ORDERED: Pregabalin 75 MG CAPSULE PO ONE (09:09)
[2019-09-19] MEDS ORDERED: Ethanol\\Acetic Acid\\Na Ace\\Ben 1,000 ML IRRIG.SOLN IR ONE (09:09)
[2019-09-19] MEDS ORDERED: Famotidine 20 MG/2 ML VIAL IVP ONE (09:09)
[2019-09-19] MEDS ORDERED: Acetaminophen IV 1,000 MG/100 ML INFUS..BTL IVPB ONE (09:09)
[2019-09-19] MEDS ORDERED: ROPIVACAINE/PF/NS 0.25% 1 EACH SYRINGE INTRAART ONE (09:29)
[2019-09-19] MEDS ORDERED: Acetaminophen IV 1,000 MG/100 ML INFUS..BTL ONE (09:29)
[2019-09-19] MEDS ORDERED: Famotidine 20 MG/2 ML VIAL ONE (09:29)
[2019-09-19] MEDS ORDERED: Lidocaine -MPF 2% 2 ML VIAL ONE (09:52)
[2019-09-19] MEDS ORDERED: *HR* Propofol 200 MG/20 ML VIAL IVP ONE (09:52)
[2019-09-19] MEDS ORDERED: *HR* Succinylcholine 200 MG/10 ML VIAL IVP ONE (09:52)
[2019-09-19] MEDS ORDERED: Lidocaine HCL 4 ML Topical Solution (Laryng-O-Jet Kit Sterile Pak) TP ONE (09:56)
[2019-09-19] MEDS ORDERED: EPHEDrine 50 MG/ML VIAL ONE (10:04)
[2019-09-19] MEDS ORDERED: Tranexamic Acid 1,000 MG/10 ML VIAL ONE ×2 (10:09→10:10)
[2019-09-19] MEDS ORDERED: Dexamethasone 4 MG/ML VIAL ONE (10:12)
[2019-09-19] MEDS ORDERED: Ondansetron 4 MG/2 ML VIAL ONE (10:12)
[2019-09-19] MEDS ORDERED: Ondansetron 4 MG/2 ML VIAL IVP ONE (10:42)
[2019-09-19] MEDS ORDERED: Ketorolac 30 MG/ML VIAL ONE (11:00)
[2019-09-19] MEDS ORDERED: *HR* Magnesium Sulfate 1 GM/2 ML VIAL ONE (11:01)
[2019-09-19] MEDS: *HR* HYDROmorphone (PF) 1 MG/ML SYRINGE IVP PRN ×2 (11:36→11:44)
[2019-09-19 12:08] LABS: Hematocrit 35.8 % (35.3-44.9); Hemoglobin 12.1 g/dL (11.5-15.4)
[2019-09-19] MEDS ORDERED: Ondansetron 4 MG/2 ML VIAL IVP PRN (12:28)
[2019-09-19] MEDS ORDERED: HYDROcodone BIT/Homatropine 5 MG TABLET PO PRN (12:28)
[2019-09-19] MEDS ORDERED: Naloxone 0.4 MG/ML INJ IVP PRN (12:28)
[2019-09-19] MEDS ORDERED: Sennosides 8.6 MG TABLET PO PRN (12:28)
[2019-09-19] MEDS ORDERED: traMADol 50 MG TABLET PO PRN (12:28)
[2019-09-19] MEDS ORDERED: NON-FORMULARY MEDICATION 1 EACH EACH (Multivitamin [One Daily Essential] 1 EACH) PO SCH (12:28)
[2019-09-19] MEDS ORDERED: Denosumab 60 MG/ML SYRINGE SQ SCH (12:28)
[2019-09-19] MEDS ORDERED: *HR* Promethazine 25 MG/ML VIAL IVP PRN (12:28)
[2019-09-19] MEDS ORDERED: MOM Conc 10 ML UD.LIQ PO PRN (12:28)
[2019-09-19] MEDS ORDERED: Temazepam 15 MG CAPSULE PO PRN (12:28)
[2019-09-19] MEDS ORDERED: Apixaban 5 MG TABLET PO SCH (12:28)
[2019-09-19] MEDS ORDERED: *HR* OxyCODONE Immed Rel 5 MG TABLET PO PRN (12:28)
[2019-09-19] MEDS: Loratadine 10 MG TABLET PO SCH ×2 (13:42→13:47)
[2019-09-19] MEDS: Anastrozole 1 MG TABLET PO SCH ×2 (13:42→16:18)
[2019-09-19] MEDS: Multivit/Ca/Min/Fe/FA 1 TAB TABLET PO SCH (13:47)
[2019-09-19] MEDS: Ascorbic Acid 500 MG TABLET PO SCH (16:31)
[2019-09-19] MEDS: Apixaban 5 MG TABLET PO SCH (20:17)
[2019-09-19] MEDS ORDERED: Gabapentin 300 MG CAPSULE PO SCH (21:00)
[2019-09-20 04:53] LABS: Basophils % 0.1 %; Hematocrit 28.2 % (35.3-44.9); Immature Granulocytes % 0.5 % (0-4); Lymphocytes # 0.9 K/mcL (0.6-4.6); Lymphocytes % 7.3 %; Mean Corpuscular HGB Conc 32.3 g/dL (31.6-35.5); Mean Corpuscular Hemoglobin 34.1 pg (28.0-33.3); Mean Corpuscular Volume 105.6 fL (83.0-100.0); Mean Platelet Volume 10.7 fL (9.4-12.4); Monocytes # 0.9 K/mcL (0.0-1.3); Monocytes % 6.8 %; Neutrophils # 10.8 K/mcL (1.6-8.9); Platelet Count 159 K/mcL (140-400); Red Blood Count 2.67 M/mcL (3.82-4.97); Red Cell Distribution Width 12.6 % (11.5-14.5); Segmented Neutrophils % 85.3 %; White Blood Count 12.7 K/mcL (4.3-11.1)
[2019-09-20 04:54] LABS: Hemoglobin 9.1 g/dL (11.5-15.4)
[2019-09-20 05:07] LABS: BUN/Creatinine Ratio 22 (6-26); Blood Urea Nitrogen 13 mg/dL (8-23); Calcium 7.1 mg/dL (8.6-10.3); Carbon Dioxide 24 mEq/L (23-29); Chloride 103 mEq/L (98-107); Glucose 162 mg/dL (70-105); Osmolality,Calculated 282 (280-300); Potassium 4.1 mEq/L (3.5-5.1); Sodium 134 mEq/L (136-145); eGFR For African Americans > 60 (> 60); eGFR For Non-African Americans > 60 (> 60)
[2019-09-20] MEDS: Loratadine 10 MG TABLET PO SCH (09:07)
[2019-09-20] MEDS: Anastrozole 1 MG TABLET PO SCH (09:07)
[2019-09-20] MEDS: Apixaban 5 MG TABLET PO SCH (09:07)
[2019-09-20] MEDS: Multivit/Ca/Min/Fe/FA 1 TAB TABLET PO SCH (09:07)
[2019-09-20] MEDS: Ascorbic Acid 500 MG TABLET PO SCH (09:07)
[2019-09-20 12:31] VITALS: BP 101/64
== END 2019-09-20 13:05 | disposition home health service (06) | DRG 470 ==
LOC: SAMDAY 08:12 → 3NENU 12:10
PROVIDERS: ADMIT Orthopaedic Surgery; ATTEND Orthopaedic Surgery